=== PATIENT | female | born 1980 | race Caucasian/White ===

== ENCOUNTER 2019-04-17 20:04 | Emergency (ER) | payer OTHER ==
[~2019-04-17] VITALS: Ht 154.9 cm; Wt 83.9 kg
[~2019-04-17 20:04] MED LIST: ANTIVERT25 MG PO; BACTRIM DS TAB1 EACH PO; DIFLUCAN200 MG PO; FLEXERIL PO; IBUPROFEN 800800 M1 PO; NORCO 5-325 TA1 EACH PO; ONDANSETRON HCL4 M2 PO; TORADOL 10 MG T10 MG PO; TRAMADOL 50 MG50 MG PO; VALIUM5 MG PO; ZOFRAN ODT4 MG PO; ZYRTEC10 MG PO
[2019-04-17] MEDS ORDERED: NABUMETONE 750750 M1 PO (21:07)
[2019-04-17 21:33] VITALS: BP 129/83
== END 2019-04-17 21:33 | disposition home or self-care (01) ==
LOC: M.ERS 20:04
DX: M25.572 Pain in left ankle and joints of left foot (principal); G43.909 Migraine, unspecified, not intractable, without status migrainosus; Z90.710 Acquired absence of both cervix and uterus; F17.210 Nicotine dependence, cigarettes, uncomplicated; Z88.2 Allergy status to sulfonamides; Z88.8 Allergy status to other drugs, medicaments and biological substances

== ENCOUNTER 2020-04-19 14:30 | Emergency (ER) | payer OTHER, MEDICAID ==
[~2020-04-19] VITALS: Ht 154.9 cm; Wt 79.4 kg
[~2020-04-19 14:30] MED LIST changes: +NABUMETONE 750750 M1 PO
[2020-04-19 17:07] VITALS: BP 125/80
== END 2020-04-19 17:07 | disposition home or self-care (01) ==
LOC: M.ERS 14:30
DX: M25.572 Pain in left ankle and joints of left foot (principal); G43.909 Migraine, unspecified, not intractable, without status migrainosus; F17.210 Nicotine dependence, cigarettes, uncomplicated; Z88.1 Allergy status to other antibiotic agents; Z88.2 Allergy status to sulfonamides; Z90.710 Acquired absence of both cervix and uterus; Z90.89 Acquired absence of other organs

== ENCOUNTER 2020-09-14 17:56 | Emergency (ER) | payer OTHER, MEDICAID ==
[~2020-09-14] VITALS: Ht 154.9 cm; Wt 79.4 kg
[2020-09-14] MEDS ORDERED: TESSALON PERLE100 MG PO (18:55)
[2020-09-14] MEDS ORDERED: ZPAK PO (18:55)
[2020-09-14] MEDS ORDERED: PROAIR HFA8.5 GM INH (18:55)
[2020-09-14] MEDS ORDERED: APAP W/CODEINE1 TA2 PO (18:55)
[2020-09-14] MEDS ORDERED: MEDROLDOSEPACK PO (18:55)
[2020-09-14 19:16] VITALS: BP 142/90
[2020-09-14 19:20] LABS: INFLUENZA A ANTIGEN Negative (Negative); INFLUENZA B ANTIGEN Negative (Negative)
--- NOTE | 2020-09-15 13:37 | EKG ---
[place] [address] ELECTROCARDIOGRAM REPORT Name: TULIO GONZALEZ Room: [facility]#: [id number] Admission: 09/14/20 Attend Phys: Discharge: 09/14/20 Date of : 82 Date of Service: 09/14/201804 Report #: [id number] THIS REPORT FOR: //name// [facility] ED Test Date: 2020-09-14 Test Time: 18:05:05 Pat Name: TULIO GONZALEZ Department: Room: Gender: F [employer]: : 1980 Requested By: Jovita Gibson Order Number: [id number] Lisa MD: Fredrick Casey Measurements Intervals [place] Rate: 104 P: 33 TN: 135 QRS: 28 QRSD: 78 T: 1 QT: 333 QTc: 438 Interpretive Statements Sinus tachycardia Abnormal R-wave progression, early transition Borderline T wave abnormalities Compared to ECG 07/27/2014 13:32:27 Sinus rhythm no longer present Electronically Signed On 09-15-2020 13:37:16 CDT by Fredrick Casey [email or web address] <ELECTRONICALLY SIGNED> By: Fredrick Casey MD, FACC 09/15/20 1337 1805 1805 Fredrikc Casey MD, FAC /EPI
== END 2020-09-14 19:17 | disposition home or self-care (01) ==
LOC: M.ERS 17:56
PROVIDERS: Physician Assistant
DX: J20.9 Acute bronchitis, unspecified (principal); Z20.828 Contact with and (suspected) exposure to other viral communicable diseases; G43.909 Migraine, unspecified, not intractable, without status migrainosus; F17.210 Nicotine dependence, cigarettes, uncomplicated; Z90.710 Acquired absence of both cervix and uterus; Z98.51 Tubal ligation status; Z88.2 Allergy status to sulfonamides; Z88.1 Allergy status to other antibiotic agents